=== PATIENT | male | born 1955 | race Caucasian/White ===

== ENCOUNTER → 2016-06-05 | Outpatient (CLI) | payer OTHER ==
[2016-06-05 13:39] LABS: ALT/SGPT 58 U/L (12-78); AST/SGOT 29 U/L (15-37); BLOOD UREA NITROGEN 16 mg/dl (7-18); BUN/CREATININE RATIO 14.7 (10-20); CALCIUM 8.7 mg/dl (8.5-10.1); CARBON DIOXIDE 25 mmol/L (21-32); CHLORIDE 110 mmol/L (98-107); GLUCOSE 103 mg/dl (70-99); POTASSIUM 4.5 mmol/L (3.5-5.1); SODIUM 142 mmol/L (136-145)
[2016-06-05 13:45] LABS: ALB/GLOB RATIO 1.2 (0.9-2); ALKALINE PHOSPHATASE 69 U/L (45-117); CHOLESTEROL 123 mg/dl (0-200); CHOLESTEROL/HDL RATIO 3.6; HDL CHOLESTEROL 34 mg/dl; LDL CHOLESTEROL CALCULATED 59 mg/dl; PROSTATE SPECIFIC ANTIGEN 0.836 ng/ml (0.000-4.000); TRIGLYCERIDES 152 mg/dl (0-150); VERY LOW DENSITY LIPOPROT CALC 30 mg/dl
== END | disposition home or self-care (01) ==
LOC: C.LABPBG 07:28
PROVIDERS: ATTEND Internal Medicine
DX: Z12.5 Encounter for screening for malignant neoplasm of prostate (principal)

== ENCOUNTER → 2017-07-20 | Outpatient (CLI) | payer OTHER ==
[2017-07-20 13:22] LABS: ALT/SGPT 49 U/L (12-78); AST/SGOT 37 U/L (15-37); BLOOD UREA NITROGEN 18 mg/dl (7-18); CALCIUM 8.7 mg/dl (8.5-10.1); CARBON DIOXIDE 25 mmol/L (21-32); CHOLESTEROL 112 mg/dl (0-200); CREATININE 1.04 mg/dl (0.60-1.40); GLUCOSE 103 mg/dl (70-99); POTASSIUM 3.9 mmol/L (3.5-5.1); SODIUM 138 mmol/L (136-145)
[2017-07-20 13:31] LABS: ALKALINE PHOSPHATASE 95 U/L (45-117); LDL CHOLESTEROL CALCULATED 36 mg/dl; TOTAL PROTEIN 7.3 gm/dl (6.4-8.2)
== END | disposition home or self-care (01) ==
LOC: C.LABPBG 07:27
PROVIDERS: ATTEND Internal Medicine
DX: I10 Essential (primary) hypertension (principal); G47.30 Sleep apnea, unspecified; E55.9 Vitamin D deficiency, unspecified; E78.5 Hyperlipidemia, unspecified; E78.1 Pure hyperglyceridemia

== ENCOUNTER 2017-08-08 11:07 | Emergency (ER) | payer OTHER ==
[~2017-08-08] VITALS: Ht 172.7 cm; Wt 109.0 kg
[2017-08-08 11:13] VITALS: TEMP 36.7; Ht 172.7 cm; Wt 109.0 kg
[2017-08-08 11:32] VITALS: O2SAT 96
[2017-08-08] MEDS ORDERED: ONDANSETRON INJ 2 MG/ML 2 ML VIAL IV STA (11:46)
[2017-08-08] MEDS ORDERED: SODIUM CHLORIDE 0.9% 1000ML 1,000 ML IV STA (11:46)
[2017-08-08] MEDS ORDERED: GI COCKTAIL PO STA (11:46)
[2017-08-08] MEDS ORDERED: OMEG10007 PO (11:51)
[2017-08-08] MEDS ORDERED: ATOR-22 PO (11:51)
[2017-08-08] MEDS ORDERED: MULT-506 PO (11:51)
[2017-08-08] MEDS ORDERED: ASPI81TA28 PO (11:51)
[2017-08-08] MEDS ORDERED: CHOL100010 PO (11:51)
[2017-08-08] MEDS ORDERED: CALC-214 PO (11:51)
[2017-08-08] MEDS ORDERED: ASCO1CAP3 PO (11:51)
[2017-08-08] MEDS ORDERED: LISI-725 PO (11:51)
[2017-08-08] MEDS ORDERED: ATEN-173 PO (11:51)
[2017-08-08] MEDS ORDERED: CHOL1CAP57 PO (11:51)
--- NOTE | 2017-08-08 11:55 | EMERGENCY ROOM VISIT NOTE ---
History Report prepared by Diana: Tolu De Leon Under the Supervision of: Dr. Brian Sargent M.D. First contact with patient: 11:43 Chief Complaint: CHEST PAIN Stated Complaint: SWEATING,SOB,CHEST AND SHOULDER PAIN,NAUSEA Nursing Triage Summary: patient c/o "dull pain in chest for several days, was working on the carpet this morning and get dizzy, sweaty" History of Present Illness The patient is a 62 year old male who presents to the Emergency Room with complaints of intermittent, dull, chest pain beginning a few weeks ago. The patient states he has had this before. He reports he told his PCP on the 4th and was told it was his diet. He reports it will go away completely, and then they would come back. The patient notes they come on randomly, and exertion does not induce it every time. He states he was moving furniture today when his symptoms developed. The patient reports he sat down in the chair and became pale and nauseous. He notes he is currently experiencing 2/10 abdominal burning. The patient states he has been eating a large amount of TUMs recently. He reports his father at 44 of a heart attack, smoked, and did not go to the doctors. The patient notes a history of high blood pressure and is on a statin for cholesterol. He states he drinks alcohol 3-4 times a week. The patient reports he has a history of smoking, and he quit smoking 30 years ago. He denies drug use, black stool, and bloody stool. Source of History: patient Onset: few weeks ago Position: chest Quality: dull Timing: intermittent Associated Symptoms: + nausea Note: Associated symptoms: pale, abdominal burning Denies: black stool, bloody stool Review of Systems See HPI for pertinent positives and negatives. A total of ten systems were reviewed and were otherwise negative. Past Medical & Surgical Medical Problems: (1) HTN (hypertension) Family History Heart disease Hypertension Social History Smoking Status: Former Smoker Smokeless Tobacco Use: No Alcohol Use: none Drug Use: none Marital Status: Housing Status: lives with significant other Occupation Status: employed Current/Historical Medications Scheduled Ascorbic Acid (Vitamin C), 500 MG PO DAILY Aspirin (Aspirin Ec), 81 MG PO DAILY Atenolol (Tenormin), 25 MG PO DAILY Atorvastatin (Lipitor), 20 MG PO DAILY Calcium W/ Magnesium (Calcium & Magnesium), 1 TAB PO DAILY Cholecalciferol (Vitamin D), 1,000 UNITS PO DAILY Cholecalciferol (Vitamin D3), 1,000 UNITS PO DAILY Fish Oil ([place]-3), 1 CAP PO DAILY Lisinopril (Zestril), 20 MG PO DAILY Multivitamin (Multivitamin), 1 TAB PO DAILY Scheduled PRN Famotidine (Pepcid), 20 MG PO BID PRN for GI Upset Allergies Coded Allergies: No Known Allergies (Unverified , 08/08/17) Physical Exam Vital Signs Date Time Temp Pulse Resp B/P (MAP) Pulse Ox O2 Delivery O2 Flow Rate FiO2 08/08/17 14:59 58 16 138/84 95 08/08/17 14:21 60 16 125/78 97 Room Air 08/08/17 12:55 60 16 134/83 96 Room Air 08/08/17 12:08 73 08/08/17 11:32 96 Room Air 08/08/17 11:13 36.7 69 20 163/88 96 Room Air Physical Exam GENERAL: Awake, alert, fatigued-appearing, in no distress HENT: Normocephalic, atraumatic. Oropharynx unremarkable except dry mucous membranes. EYES: Normal conjunctiva. Sclera non-icteric. NECK: Supple. No nuchal rigidity. FROM. No JVD. RESPIRATORY: Clear to auscultation. CARDIAC: Regular rate, normal rhythm. Extremities warm and well perfused. Pulses equal. ABDOMEN: Soft, non-distended. Mild epigastric discomfort with no discrete tenderness to palpation. No rebound or guarding. No masses. RECTAL: Deferred. MUSCULOSKELETAL: Chest examination reveals no tenderness. The back is symmetrical on inspection without obvious abnormality. There is no CVA tenderness to palpation. No joint edema. LOWER EXTREMITIES: Calves are equal size bilaterally and non-tender. No edema. No discoloration. NEURO: Normal sensorium. No sensory or motor deficits noted. SKIN: No rash or jaundice noted. Medical Decision & Procedures ER Provider Diagnostic Interpretation: X-ray: Per my interpretation, radiologist review. CHEST ONE VIEW PORTABLE HISTORY: Atypical CHEST PAIN COMPARISON: None. FINDINGS: Small left perihilar nodular density may be due to a normal vessel or calcified granuloma. The lungs are otherwise clear. The heart is top normal in size. No pleural effusions. No pneumothorax. No evidence for pulmonary edema. IMPRESSION: No acute process. Electronically signed by: Edis Ambriz M.D. 08/08/2017 12:32 PM Dictated Date/Time: 08/08/2017 12:30 PM Laboratory Results 08/08/17 11:30 Red Blood Count 5.33, Mean Corpuscular Volume 82.4, Mean Corpuscular Hemoglobin 29.6, Mean Corpuscular Hemoglobin Concent 36.0, Mean Platelet Volume 10.0, Neutrophils (%) (Auto) 63.9, Lymphocytes (%) (Auto) 26.1, Monocytes (%) (Auto) 5.7, Eosinophils (%) (Auto) 2.8, Basophils (%) (Auto) 1.1, Neutrophils # (Auto) 5.23, Lymphocytes # (Auto) 2.14, Monocytes # (Auto) 0.47, Eosinophils # (Auto) 0.23, Basophils # (Auto) 0.09 08/08/17 11:30 Test 08/08/17 11:30 08/08/17 12:05 08/08/17 13:37 White Blood Count 8.19 K/uL (4.8-10.8) Red Blood Count 5.33 M/uL (4.7-6.1) Hemoglobin 15.8 g/dL (14.0-18.0) Hematocrit 43.9 % (42-52) Mean Corpuscular Volume 82.4 fL (80-100) Mean Corpuscular Hemoglobin 29.6 pg (25-34) Mean Corpuscular Hemoglobin Concent 36.0 g/dl (32-36) Platelet Count 246 K/uL (130-400) Mean Platelet Volume 10.0 fL (7.4-10.4) Neutrophils (%) (Auto) 63.9 % Lymphocytes (%) (Auto) 26.1 % Monocytes (%) (Auto) 5.7 % Eosinophils (%) (Auto) 2.8 % Basophils (%) (Auto) 1.1 % Neutrophils # (Auto) 5.23 K/uL (1.4-6.5) Lymphocytes # (Auto) 2.14 K/uL (1.2-3.4) Monocytes # (Auto) 0.47 K/uL (0.11-0.59) Eosinophils # (Auto) 0.23 K/uL (0-0.5) Basophils # (Auto) 0.09 K/uL (0-0.2) RDW Standard Deviation 37.6 fL (36.4-46.3) RDW Coefficient of Variation 12.6 % (11.5-14.5) Immature Granulocyte % (Auto) 0.4 % Immature Granulocyte # (Auto) 0.03 K/uL (0.00-0.02) Prothrombin Time 10.0 SECONDS (9.0-12.0) Prothromb Time International Ratio 1.0 (0.9-1.1) Anion Gap 7.0 mmol/L (3-11) Est Creatinine Clear Calc Drug Dose 75.8 ml/min Estimated GFR () 72.8 Estimated GFR (Non- 62.8 BUN/Creatinine Ratio 15.2 (10-20) Calcium Level 9.5 mg/dl (8.5-10.1) Magnesium Level 2.0 mg/dl (1.8-2.4) Total Bilirubin 0.5 mg/dl (0.2-1) Direct Bilirubin 0.1 mg/dl (0-0.2) Aspartate Amino Transf (AST/SGOT) 31 U/L (15-37) Alanine Aminotransferase (ALT/SGPT) 47 U/L (12-78) Alkaline Phosphatase 93 U/L (45-117) Total Protein 7.6 gm/dl (6.4-8.2) Albumin 4.1 gm/dl (3.4-5.0) Lipase 212 U/L (73-393) Ethyl Alcohol mg/dL < 3.0 mg/dl (0-3) Troponin I < 0.015 ng/ml (0-0.045) Laboratory results reviewed by me Medications Administered Medications (Trade) Dose Ordered Sig/Deanna Route Start Time Stop Time Status Last Admin Dose Admin Sodium Chloride 1,000 ml @ 999 mls/hr Q1H1M STAT IV 08/08/17 11:46 08/08/17 12:46 DC 08/08/17 12:12 999 MLS/HR Ondansetron HCl (Zofran Inj) 4 mg NOW STAT IV 08/08/17 11:46 08/08/17 11:55 DC 08/08/17 12:13 4 MG Famotidine (Pepcid Tab) 20 mg NOW ONCE PO 08/08/17 12:00 08/08/17 12:01 DC 08/08/17 12:13 20 MG Al Hydroxide/Mg Hydroxide (Maalox Susp) 30 ml STK-MED ONCE .ROUTE 08/08/17 12:06 08/08/17 12:07 DC 08/08/17 12:13 30 ML Lidocaine HCl (Viscous Lidocaine 2% Soln) 20 ml STK-MED ONCE .ROUTE 08/08/17 12:06 08/08/17 12:07 DC 08/08/17 12:13 20 ML ECG Per My Interpretation Indication: chest pain Rate (beats per minute): 68 Rhythm: normal sinus Findings: no acute ischemic change, other (Normal axis) ED Course 1146: The patient was evaluated in room B02. A complete history and physical exam was performed. 1322: I reevaluated the patient. He is feeling better. I updated him of current exam and test findings. 1444: I reevaluated the patient. Discussed results and discharge instructions: he verbalized understanding and agreement. The patient is ready for discharge. Medical Decision I reviewed the patient's past medical history, medications, and the nursing notes as described above. Differential diagnosis: Etiologies such as cardiac ischemia, aortic dissection, pulmonary embolism, pneumonia, pneumothorax, musculoskeletal, infections, pericarditis, myocarditis , esophageal rupture, gastrointestinal, as well as others were entertained. The patient is a 62-year-old gentleman who presents emergency department with intermittent chest and abdominal pain that waxes and wanes over the past several weeks with associated nausea and shortness of breath per hpi. On arrival the patient is no acute distress, afebrile stable vital signs. On exam the patient is mild upper abdominal discomfort with no discrete tenderness. EKG is unremarkable without evidence of ischemia. Troponin 4 hours after onset of symptoms negative. Labs otherwise unremarkable including WBC within normal limits. Chest x-ray negative. Patient feeling improved after IV fluid hydration, Pepcid, GI cocktail. Delta 2 hour troponin sent for additional rule out and again negative. Heart score 3, low risk, ACS unlikely. No pleuritic sx thus PE not likely. Not positional, pericarditis not likely. No tearing pain and equal pulses, dissection not likely. Otherwise, given the patient's improvement with GI medications symptoms most likely related to gastritis, reflux. Plan for PCP follow-up for further evaluation and possible nonemergent outpatient stress testing although patient reports normal exercise stress test in 2016. Findings and plan for follow-up reviewed with patient. Patient agreeable and d/c'd per discharge instructions. Medication Reconcilliation Current Medication List: was personally reviewed by me Blood Pressure Screening Patient's blood pressure: Elevated blood pressure Blood pressure disposition: Elevated BP felt to be situational Impression Primary Impression: Substernal precordial chest pain Additional Impression: Gastritis Scribe Attestation The scribe's documentation has been prepared under my direction and personally reviewed by me in its entirety. I confirm that the note above accurately reflects all work, treatment, procedures, and medical decision making performed by me. Departure Information Dispostion Home / Self-Care Prescriptions Famotidine (PEPCID) 20 Mg Tab 20 MG PO BID Y for GI Upset for 10 Days, #20 TAB Prov: Brian Sargent M.D. 08/08/17 Referrals Fawad Ca M.D. (PCP) Forms Call Back Authorization, HOME CARE DOCUMENTATION FORM, IMPORTANT VISIT INFORMATION Patient Instructions ED Chest Pain Atypical Unkn Cause, ED Gastritis, My [facility] Additional Instructions Please follow up with your primary care physician in the next 1-3 days for re- evaluation and possible nonemergent outpatient stress test. Your symptoms are possibly related to reflux/gastritis. Otherwise, your exam, EKG, chest xray, and lab results did not show signs of an emergent condition at this time. Pepcid and Tums as needed for GI upset/acid reduction. Drink plenty of fluids to ensure hydration. Return to the emergency department for worsening symptoms as described in the accompanying instructions. Problem Qualifiers
[2017-08-08] MEDS ORDERED: FAMOTIDINE 20 MG TAB PO ONE (12:00)
[2017-08-08 12:02] LABS: BASO % 1.1 %; BASO ABS # 0.09 K/uL (0-0.2); EOS % 2.8 %; EOS ABS # 0.23 K/uL (0-0.5); HEMATOCRIT 43.9 % (42-52); HEMOGLOBIN 15.8 g/dL (14.0-18.0); IG# 0.03 K/uL (0.00-0.02); LYMPH % 26.1 %; LYMPH ABS # 2.14 K/uL (1.2-3.4); MEAN CELL VOLUME 82.4 fL (80-100); MEAN CORPUSCULAR HEMOGLOBIN 29.6 pg (25-34); MONO % 5.7 %; MONO ABS # 0.47 K/uL (0.11-0.59); NEUT % 63.9 %; NEUT ABS # 5.23 K/uL (1.4-6.5); PLATELET COUNT 246 K/uL (130-400); RED CELL DISTRIBUTION WIDTH CV 12.6 % (11.5-14.5); RED CELL DISTRIBUTION WIDTH SD 37.6 fL (36.4-46.3); WHITE BLOOD COUNT 8.19 K/uL (4.8-10.8)
[2017-08-08] MEDS ORDERED: ALUMINUM/MAGNESIUM SUSP 30 ML UDC ONE (12:06)
[2017-08-08] MEDS ORDERED: LIDOCAINE HCL 2% VISC SOLN 20 ML UDC ONE (12:06)
[2017-08-08 12:14] LABS: ALBUMIN 4.1 gm/dl (3.4-5.0); ALKALINE PHOSPHATASE 93 U/L (45-117); ALT/SGPT 47 U/L (12-78); AST/SGOT 31 U/L (15-37); BLOOD UREA NITROGEN 19 mg/dl (7-18); CALCIUM 9.5 mg/dl (8.5-10.1); CARBON DIOXIDE 28 mmol/L (21-32); CREATININE 1.24 mg/dl (0.60-1.40); GLUCOSE 96 mg/dl (70-99); LIPASE 212 U/L (73-393); POTASSIUM 4.3 mmol/L (3.5-5.1); SODIUM 140 mmol/L (136-145); TOTAL PROTEIN 7.6 gm/dl (6.4-8.2)
--- NOTE | 2017-08-08 12:33 | DIAGNOSTIC IMAGING REPORT ---
CHEST ONE VIEW PORTABLE HISTORY: Atypical CHEST PAIN COMPARISON: None. FINDINGS: Small left perihilar nodular density may be due to a normal vessel or calcified granuloma. The lungs are otherwise clear. The heart is top normal in size. No pleural effusions. No pneumothorax. No evidence for pulmonary edema. IMPRESSION: No acute process. Electronically signed by: Edis Ambriz M.D. 08/08/2017 12:32 PM Dictated Date/Time: 08/08/2017 12:30 PM
[2017-08-08] MEDS ORDERED: FAMO20TA9 PO (14:41)
[2017-08-08 14:59] VITALS: BP 138/84; PULSE 58; O2SAT 95
== END 2017-08-08 15:00 | disposition home or self-care (01) ==
LOC: C.EDB 11:09
DX: R07.2 Precordial pain (principal); K29.70 Gastritis, unspecified, without bleeding; I10 Essential (primary) hypertension; Z87.891 Personal history of nicotine dependence; Z82.49 Family history of ischemic heart disease and other diseases of the circulatory system; Z81.2 Family history of tobacco abuse and dependence; Z79.82 Long term (current) use of aspirin; Z79.899 Other long term (current) drug therapy

== ENCOUNTER 2017-10-19 07:05 | Emergency (ER) | payer OTHER ==
[~2017-10-19 07:05] MED LIST: ASCO1CAP3 PO; ASPI81TA28 PO; ATEN-173 PO; ATOR-22 PO; CALC-214 PO; CHOL100010 PO; CHOL1CAP57 PO; LISI-725 PO; MULT-506 PO; OMEG10007 PO
[2017-10-19 07:15] VITALS: Ht 177.8 cm
[2017-10-19] MEDS ORDERED: ZNT/150 PO (07:29)
[2017-10-19 07:35] LABS: BASO % 0.9 %; BASO ABS # 0.07 K/uL (0-0.2); EOS % 3.7 %; EOS ABS # 0.29 K/uL (0-0.5); HEMATOCRIT 44.8 % (42-52); HEMOGLOBIN 15.6 g/dL (14.0-18.0); IG# 0.03 K/uL (0.00-0.02); LYMPH ABS # 2.03 K/uL (1.2-3.4); MEAN CELL VOLUME 84.8 fL (80-100); MEAN CORPUSCULAR HEMOGLOBIN 29.5 pg (25-34); MEAN CORPUSCULAR HGB CONC 34.8 g/dl (32-36); MEAN PLATELET VOLUME 10.5 fL (7.4-10.4); MONO % 8.4 %; MONO ABS # 0.66 K/uL (0.11-0.59); NEUT % 60.6 %; NEUT ABS # 4.74 K/uL (1.4-6.5); PLATELET COUNT 224 K/uL (130-400); RED CELL DISTRIBUTION WIDTH CV 12.6 % (11.5-14.5); RED CELL DISTRIBUTION WIDTH SD 38.6 fL (36.4-46.3); WHITE BLOOD COUNT 7.82 K/uL (4.8-10.8)
--- NOTE | 2017-10-19 07:37 | DIAGNOSTIC IMAGING REPORT ---
CHEST ONE VIEW PORTABLE CLINICAL HISTORY: Fever, sepsis COMPARISON STUDY: No previous studies for comparison. FINDINGS: The heart is at the upper limits of normal in size. There is no failure. There is no focal pulmonary consolidation. There are no pleural effusions.[ IMPRESSION: No active disease in the chest. Electronically signed by: Orlando Mcdonnell M.D. 10/19/2017 7:35 AM Dictated Date/Time: 10/19/2017 7:35 AM
[2017-10-19 07:45] LABS: PTT PATIENT 24.5 SECONDS (21.0-31.0)
[2017-10-19 07:57] LABS: ALBUMIN 3.9 gm/dl (3.4-5.0); ALKALINE PHOSPHATASE 92 U/L (45-117); ALT/SGPT 56 U/L (12-78); AST/SGOT 41 U/L (15-37); BLOOD UREA NITROGEN 19 mg/dl (7-18); CALCIUM 8.7 mg/dl (8.5-10.1); CARBON DIOXIDE 26 mmol/L (21-32); CKMB 13.6 ng/ml (0.5-3.6); CREATININE 1.08 mg/dl (0.60-1.40); GLUCOSE 120 mg/dl (70-99); LIPASE 165 U/L (73-393); POTASSIUM 3.9 mmol/L (3.5-5.1); SODIUM 138 mmol/L (136-145); TOTAL PROTEIN 7.4 gm/dl (6.4-8.2)
--- NOTE | 2017-10-19 08:59 | DIAGNOSTIC IMAGING REPORT ---
HEAD WITHOUT CONTRAST (CT) CLINICAL HISTORY: 62 years-old Male with paresthesias all extremities. Acute paresthesia involving all of the extremities TECHNIQUE: Multiple axial CT images of the head were obtained without contrast. A dose lowering technique was utilized adhering to the principles of ALARA. CT DOSE: 537.48 mGy.cm COMPARISON: None. FINDINGS: No acute intracranial hemorrhage, midline shift, intracranial mass, hydrocephalus, territorial ischemia or abnormal extra-axial collection. Cerebellar tonsils are noted extending to at least the level of the foramen magnum. The calvarium is intact. Mastoid air cells and middle ear cavities are clear clear. Mild mucosal thickening of the inferior frontal sinuses, and bilateral ethmoid air cells. Minimal polypoid mucosal thickening about the left maxillary sinus. Soft tissues and orbits are unremarkable. Prior bilateral cataract repair. IMPRESSION: No acute intracranial abnormality. The above report was generated using voice recognition software. It may contain grammatical, syntax or spelling errors. Electronically signed by: Joe Portillo M.D. 10/19/2017 8:57 AM Dictated Date/Time: 10/19/2017 8:55 AM
--- NOTE | 2017-10-19 09:06 | EMERGENCY ROOM VISIT NOTE ---
History Report prepared by Diana: Ayo Doherty Under the Supervision of: Dr. José Miguel Howard D.O. First contact with patient: 07:11 Chief Complaint: CARDIAC ASSESSMENT Stated Complaint: BP GUSTABO,FINGERS ZACHARIAH,CHEST PAIN History of Present Illness The patient is a 62 year old male who presents to the Emergency Room with complaints of intermittent chest discomfort that he has been experiencing for the past week. The patient describes his chest discomfort as a "pressure." His most current episode of chest pressure has been constant for the past couple of hours, and he is experiencing it currently. The patient also complains of "tingling" sensations over his arms, hands, and feet for about the past week as well. The patient's at bedside notes that he has been experiencing intermittent dizzy spells. The patient's father of a myocardial infarction at 44 years of age. Source of History: patient Onset: Past week Position: chest Quality: pressure Timing: intermittent Associated Symptoms: + headache (Dizzy), + numbness ("tingling" in arms, hands, and feet) Review of Systems See HPI for pertinent positives & negatives. A total of 10 systems reviewed and were otherwise negative. Past Medical & Surgical Medical Problems: (1) HTN (hypertension) Family History Heart disease Hypertension Social History Smoking Status: Former Smoker Alcohol Use: none Drug Use: none Marital Status: Housing Status: lives with significant other Occupation Status: employed Current/Historical Medications Scheduled Ascorbic Acid (Vitamin C), 500 MG PO DAILY Aspirin (Aspirin Ec), 81 MG PO DAILY Atenolol (Tenormin), 25 MG PO DAILY Atorvastatin (Lipitor), 20 MG PO DAILY Calcium W/ Magnesium (Calcium & Magnesium), 1 TAB PO DAILY Cholecalciferol (Vitamin D), 2,000 UNITS PO DAILY Fish Oil ([place]-3), 1 CAP PO DAILY Lisinopril (Zestril), 20 MG PO DAILY Multivitamin (Multivitamin), 1 TAB PO DAILY Ranitidine Hcl (Zantac), 150 MG PO BID Allergies Coded Allergies: No Known Allergies (Unverified , 10/19/17) Physical Exam Vital Signs Date Time Temp Pulse Resp B/P (MAP) Pulse Ox O2 Delivery O2 Flow Rate FiO2 10/19/17 09:35 58 18 126/69 96 10/19/17 08:53 63 19 131/82 96 Room Air 10/19/17 07:17 97 Room Air 10/19/17 07:16 69 10/19/17 07:15 71 20 149/93 97 Room Air Physical Exam CONSTITUTIONAL/VITAL SIGNS: Reviewed / noted above. GENERAL: Non-toxic in appearance. INTEGUMENTARY: Warm, dry, and [place]. HEAD: Normocephalic. EYES: without scleral icterus or trauma. ENT/OROPHARYNX: clear and moist. LYMPHADENOPATHY/NECK: Is supple without lymphadenopathy or meningismus. RESPIRATORY: Lungs clear and equal. CARDIOVASCULAR: Regular rate and rhythm. GI/ABDOMEN: Soft and nontender. No organomegaly or pulsatile mass. No rebound or guarding. Normal bowel sounds. EXTREMITIES: Warm and well perfused. BACK: No CVA tenderness. NEUROLOGICAL: Intact without focal deficits. PSYCHIATRIC: normal affect. MUSCULOSKELETAL: Normally developed with good muscle tone. Medical Decision & Procedures ER Provider Diagnostic Interpretation: Radiology results as stated below per my review and radiologist interpretation: HEAD WITHOUT CONTRAST (CT) CLINICAL HISTORY: 62 years-old Male with paresthesias all extremities. Acute paresthesia involving all of the extremities TECHNIQUE: Multiple axial CT images of the head were obtained without contrast. A dose lowering technique was utilized adhering to the principles of ALARA. CT DOSE: 537.48 mGy.cm COMPARISON: None. FINDINGS: No acute intracranial hemorrhage, midline shift, intracranial mass, hydrocephalus, territorial ischemia or abnormal extra-axial collection. Cerebellar tonsils are noted extending to at least the level of the foramen magnum. The calvarium is intact. Mastoid air cells and middle ear cavities are clear clear. Mild mucosal thickening of the inferior frontal sinuses, and bilateral ethmoid air cells. Minimal polypoid mucosal thickening about the left maxillary sinus. Soft tissues and orbits are unremarkable. Prior bilateral cataract repair. IMPRESSION: No acute intracranial abnormality. The above report was generated using voice recognition software. It may contain grammatical, syntax or spelling errors. Electronically signed by: Joe Portillo M.D. 10/19/2017 8:57 AM Dictated Date/Time: 10/19/2017 8:55 AM CHEST ONE VIEW PORTABLE CLINICAL HISTORY: Fever, sepsis COMPARISON STUDY: No previous studies for comparison. FINDINGS: The heart is at the upper limits of normal in size. There is no failure. There is no focal pulmonary consolidation. There are no pleural effusions.[ IMPRESSION: No active disease in the chest. Electronically signed by: Orlando Mcdonnell M.D. 10/19/2017 7:35 AM Dictated Date/Time: 10/19/2017 7:35 AM Laboratory Results 10/19/17 07:23 Red Blood Count 5.28, Mean Corpuscular Volume 84.8, Mean Corpuscular Hemoglobin 29.5, Mean Corpuscular Hemoglobin Concent 34.8, Mean Platelet Volume 10.5, Neutrophils (%) (Auto) 60.6, Lymphocytes (%) (Auto) 26.0, Monocytes (%) (Auto) 8.4, Eosinophils (%) (Auto) 3.7, Basophils (%) (Auto) 0.9, Neutrophils # (Auto) 4.74, Lymphocytes # (Auto) 2.03, Monocytes # (Auto) 0.66, Eosinophils # (Auto) 0.29, Basophils # (Auto) 0.07 10/19/17 07:23 Test 10/19/17 07:23 White Blood Count 7.82 K/uL (4.8-10.8) Red Blood Count 5.28 M/uL (4.7-6.1) Hemoglobin 15.6 g/dL (14.0-18.0) Hematocrit 44.8 % (42-52) Mean Corpuscular Volume 84.8 fL (80-100) Mean Corpuscular Hemoglobin 29.5 pg (25-34) Mean Corpuscular Hemoglobin Concent 34.8 g/dl (32-36) Platelet Count 224 K/uL (130-400) Mean Platelet Volume 10.5 fL (7.4-10.4) Neutrophils (%) (Auto) 60.6 % Lymphocytes (%) (Auto) 26.0 % Monocytes (%) (Auto) 8.4 % Eosinophils (%) (Auto) 3.7 % Basophils (%) (Auto) 0.9 % Neutrophils # (Auto) 4.74 K/uL (1.4-6.5) Lymphocytes # (Auto) 2.03 K/uL (1.2-3.4) Monocytes # (Auto) 0.66 K/uL (0.11-0.59) Eosinophils # (Auto) 0.29 K/uL (0-0.5) Basophils # (Auto) 0.07 K/uL (0-0.2) RDW Standard Deviation 38.6 fL (36.4-46.3) RDW Coefficient of Variation 12.6 % (11.5-14.5) Immature Granulocyte % (Auto) 0.4 % Immature Granulocyte # (Auto) 0.03 K/uL (0.00-0.02) Prothrombin Time 10.2 SECONDS (9.0-12.0) Prothromb Time International Ratio 1.0 (0.9-1.1) Activated Partial Thromboplast Time 24.5 SECONDS (21.0-31.0) Partial Thromboplastin Ratio 0.9 Anion Gap 8.0 mmol/L (3-11) Estimated GFR () 86.0 Estimated GFR (Non- 74.2 BUN/Creatinine Ratio 17.4 (10-20) Calcium Level 8.7 mg/dl (8.5-10.1) Total Bilirubin 0.7 mg/dl (0.2-1) Direct Bilirubin 0.2 mg/dl (0-0.2) Aspartate Amino Transf (AST/SGOT) 41 U/L (15-37) Alanine Aminotransferase (ALT/SGPT) 56 U/L (12-78) Alkaline Phosphatase 92 U/L (45-117) Total Creatine Kinase 557 U/L (39-308) Creatine Kinase MB 13.6 ng/ml (0.5-3.6) Creatine Kinase MB Ratio 2.4 (0-3.0) Troponin I < 0.015 ng/ml (0-0.045) Total Protein 7.4 gm/dl (6.4-8.2) Albumin 3.9 gm/dl (3.4-5.0) Lipase 165 U/L (73-393) Laboratory results as stated above per my review. ECG Per My Interpretation Indication: chest pain Rate (beats per minute): 69 Rhythm: normal sinus Findings: no acute ischemic change, no ectopy, other (No TALYA/STD, no PVCs) ED Course 0717: Previous medical records were reviewed. The patient was evaluated in room A9B. A complete history and physical examination was performed. 0910:: On reevaluation, the patient is resting in bed. I discussed the results and findings with the patient. He verbalized agreement of the treatment plan. The patient was discharged home. Medical Decision the differential was considered includes acute myocardial infarction, acute coronary syndrome, myocarditis, pericarditis, pericardial effusions /tamponade, esophageal perforation, thoracic aortic dissection, pulmonary embolism, pneumonia, pneumothorax, pancreatitis, shingles, acute cholecystitis, perforated abdominal viscus. This is a 62-year-old male who presents to the ED with a chief complaint of some tingling in his arms, hands and feet over the past week or 2. He also reports some chest pressure in the middle of his chest over the past couple of weeks as well. It is been present for at least a couple of hours now. He states that he has been up since midnight and was having trouble sleeping. He denies any focal deficits. Denies any additional symptoms. His vital signs were initially hypertensive but is currently normal. The patient's neuro exam was normal. EKG shows a normal sinus rhythm at a rate of 69. CBC is normal, BUN is 19, troponin was negative, CT scan of the brain was negative for acute disease and a chest x-ray was negative for acute disease. The patient was told the results. He is felt to be stable for discharge and outpatient follow-up. Medication Reconcilliation Current Medication List: was personally reviewed by me Blood Pressure Screening Patient's blood pressure: Elevated blood pressure Blood pressure disposition: Elevated BP felt to be situational Impression Primary Impression: Paresthesia Additional Impression: Chest pressure Scribe Attestation The scribe's documentation has been prepared under my direction and personally reviewed by me in its entirety. I confirm that the note above accurately reflects all work, treatment, procedures, and medical decision making performed by me. Departure Information Dispostion Home / Self-Care Referrals Fawad Ca M.D. (PCP) Patient Instructions My [facility] Additional Instructions CT scan of the brain was normal, chest x-ray was normal, blood work was unremarkable. EKG did not show any abnormality. The exact cause of your symptoms today were not discovered. Follow-up with your family doctor this week for recheck and further evaluation. Return for worsening or new symptoms. Problem Qualifiers
[2017-10-19 09:35] VITALS: BP 126/69; PULSE 58; O2SAT 96
== END 2017-10-19 09:35 | disposition home or self-care (01) ==
LOC: C.EDB 07:06 → C.EDA 09:35
DX: R20.2 Paresthesia of skin (principal); R07.89 Other chest pain; Z82.41 Family history of sudden cardiac death; I10 Essential (primary) hypertension; Z79.82 Long term (current) use of aspirin; Z79.899 Other long term (current) drug therapy

== ENCOUNTER → 2017-10-27 | Outpatient (CLI) | payer OTHER ==
[~2017-10-27] MED LIST changes: -CHOL1CAP57 PO; +ZNT/150 PO
[2017-10-27 13:43] LABS: ALBUMIN 3.9 gm/dl (3.4-5.0); ALKALINE PHOSPHATASE 89 U/L (45-117); ALT/SGPT 51 U/L (12-78); AST/SGOT 30 U/L (15-37); BLOOD UREA NITROGEN 24 mg/dl (7-18); CALCIUM 8.8 mg/dl (8.5-10.1); CARBON DIOXIDE 20 mmol/L (21-32); CREATININE 1.01 mg/dl (0.60-1.40); GLUCOSE 108 mg/dl (70-99); POTASSIUM 3.9 mmol/L (3.5-5.1); SODIUM 136 mmol/L (136-145); TOTAL PROTEIN 7.5 gm/dl (6.4-8.2)
== END | disposition home or self-care (01) ==
LOC: C.LABPBG 07:28
PROVIDERS: ATTEND Nurse Practitioner Adult Health
DX: R74.8 Abnormal levels of other serum enzymes (principal); E78.5 Hyperlipidemia, unspecified

== ENCOUNTER 2019-10-31 05:13 | Observation (INO) ==
--- NOTE | 2019-10-27 09:20 | Anesthesiology Consultation ---
Date of Service October 27, 2019 Assessment & Plan (1) Encounter for pre-operative examination: COVID Status: As of 10/24 nurse assessment, patient denies travel to endemic area, known exposure/sick contacts, or symptoms of COVID19. Preoperative COVID19 testing completed on 10/25 at [facility], results pending. Chart Review Chart Review: Acceptable Risk for Surgery and Patient NOT seen in Pre Admission Testing History Surgery Operation Date: 10/31/19 07:00 Proposed Procedures p Laparoscopic Cholecystectomy - Alan Pyle MD, FACS Height/Weight Height: 5 ft 10 in Weight: 104.326 kg Allergies Allergy/AdvReac Type Severity Reaction Status Date / Time No Known Drug Allergies Allergy Verified 10/25/19 13:28 Medications Home Medications Medication Instructions Recorded Confirmed Last Taken aspirin [Ecotrin Low Strength] 81 mg PO QAM 03/12/18 10/25/19 03/30/18 09:00 multivitamin 1 tab PO HS 03/12/18 10/25/19 09/20/18 22:00 cholecalciferol (vitamin D3) 25 1,000 unit PO QAM 09/07/18 10/25/19 09/20/18 22:00 mcg (1,000 unit) capsule omega 6-yhg-kdw-fish oil 1,000 mg 1 cap PO BID cap 03/09/19 10/25/19 Unknown (120 mg-180 mg) capsule atorvastatin 40 mg tablet 40 mg PO QPM #90 tab 08/29/19 10/25/19 Unknown omeprazole 40 mg capsule,delayed 40 mg PO BID #60 cap 09/06/19 10/25/19 Unknown release lisinopril 40 mg tablet 40 mg PO QAM #30 tab 09/21/19 10/25/19 Unknown ascorbic acid (vitamin C) 500 mg 1,000 mg PO HS tab 10/04/19 10/25/19 Unknown tablet vitamin E 400 unit tablet 400 units PO QAM 10/04/19 10/25/19 Unknown hydrochlorothiazide 12.5 mg PO QAM 10/25/19 10/25/19 Unknown metoprolol succinate 25 mg PO HS 10/25/19 10/25/19 Unknown Past Medical History Medical History GERD (gastroesophageal reflux disease) (Chronic) Hearing deficit (Chronic) History of Helicobacter pylori infection resolved. treated in april 2019 Hyperlipidemia (Chronic) Hypertension (Chronic) Sleep apnea (Chronic) cpap Past Family History Family History Grandmother (Maternal) Family history of diabetes mellitus Diabetes Father Cardiac disorder Myocardial infarction Brother Cardiac disorder Mother History of cholecystectomy Other Heart disease Denies family history of Ovarian cancer Prostate cancer Breast cancer Colorectal cancer Past Surgical History Surgical History History of back surgery 05/20/01 lumbar laminectomy (fragmented disc removed at l4-l[address] Paula History of bilateral cataract extraction History of cardiac cath 2005 @ [place] no stents History of cataract surgery 05/04 removal of bilateral cataracts History of colonoscopy w/ polypectomy mar 2019 History of esophagogastroduodenoscopy (EGD) apr 2019 History of lumbar discectomy L5 History of tonsillectomy and adenoidectomy History of tooth extraction wisdom teeth Hx of vasectomy Social History Smoking Status: Former smoker Smoking cigarettes per day: 1 pack Smoking End Date: 32 years ago Hx Alcohol Use: Yes Alcohol type: beer alcohol intake frequency: a few times a week Hx Substance Use: No substance use type: does not use Testing Laboratory Results 10/26/19 WBC: 7.10 H/H: 15/43.1 PLATELETS: 221 SODIUM: 137 POTASSIUM: 4.3 CHLORIDE: 107 CO2: 23 BUN: 26 CREATININE: 1.29 GLUCOSE: 117 Electrocardiogram Date: 10/20/19 Findings: + NSR @ (64bpm) Stress Test Date: 02/02/18 Type: exercise Resting EF: 60% Normal exercise stress echo without evidence of ischemia. LV normal in size and systolic function. Mild concentric LVH.
[2019-10-31] MEDS ORDERED: LR 15ML/HR IV SCH (06:00)
[2019-10-31] MEDS ORDERED: DEXAMETHASONE SOD INJ 4 MG/ML VIAL ONE (06:23)
[2019-10-31] MEDS ORDERED: LIDOCAINE HCL 2% 2 ML VIAL/AMP(20MG/ML) INFIL ONE (06:23)
[2019-10-31] MEDS ORDERED: ROCURONIUM BROMIDE 10 MG/ML 5 ML VIAL IV ONE (06:23)
[2019-10-31] MEDS ORDERED: GLYCOPYRROLATE 0.2 MG/ML VIAL ONE (06:23)
[2019-10-31] MEDS ORDERED: PROPOFOL IV EMULSION 10 MG/ML 20 ML VIAL IV ONE (06:23)
[2019-10-31] MEDS ORDERED: ONDANSETRON INJ 2 MG/ML 2 ML VIAL ONE (06:23)
[2019-10-31] MEDS ORDERED: NEOSTIGMINE METHYLSULFATE 5 MG/5 ML SYR ONE (06:23)
[2019-10-31] MEDS ORDERED: fentaNYL citrate 100 MCG/2 ML VIAL ONE ×2 (06:24→07:12)
[2019-10-31] MEDS ORDERED: MIDAZOLAM HCL 1 MG/ML 2ML VIAL ONE (06:24)
[2019-10-31] MEDS ORDERED: ATROPINE SULFATE 0.1 MG/ML 10ML SYR IV PRN (06:35)
[2019-10-31] MEDS ORDERED: HYDROmorphone INJ 1 MG/ML SYRINGE IV PRN (06:35)
[2019-10-31] MEDS ORDERED: ONDANSETRON INJ 2 MG/ML 2 ML VIAL IV PRN ×2 (06:35→09:22)
[2019-10-31] MEDS ORDERED: fentaNYL citrate 100 MCG/2 ML VIAL IV PRN (06:35)
[2019-10-31] MEDS ORDERED: ePHEDrine sulfate 50 MG/ML AMP IV PRN (06:35)
[2019-10-31] MEDS ORDERED: BUPIVACAINE 0.5 % 5 MG/1 ML MPF 30ML VIAL ONE (06:38)
--- NOTE | 2019-10-31 06:52 | History & Physical Report ---
Date of Service October 31, 2019 Assessment & Plan (1) Biliary colic: Patient is for laparoscopic cholecystectomy [facility] Likely discharge home History of Present Illness Primary Care Provider: KULWANT Gaytan 64-year-old male with a history of abdominal pain felt to be associated with his gallbladder He had an ultrasound showing gallbladder sludge He is for elective cholecystectomy Allergies Allergy/AdvReac Type Severity Reaction Status Date / Time No Known Drug Allergies Allergy Verified 10/31/19 05:43 Home Medications Home Medications Medication Instructions Recorded Confirmed Type aspirin [Ecotrin Low Strength] 81 mg PO QAM 03/12/18 10/31/19 History multivitamin 1 tab PO HS 03/12/18 10/25/19 History cholecalciferol (vitamin D3) 25 1,000 unit PO QAM 09/07/18 10/25/19 History mcg (1,000 unit) capsule omega 2-rqr-fqt-fish oil 1,000 mg 1 cap PO BID cap 03/09/19 10/25/19 History (120 mg-180 mg) capsule atorvastatin 40 mg tablet 40 mg PO QPM #90 tab 08/29/19 10/25/19 Rx omeprazole 40 mg capsule,delayed 40 mg PO BID #60 cap 09/06/19 10/31/19 Rx release lisinopril 40 mg tablet 40 mg PO QAM #30 tab 09/21/19 10/25/19 Rx ascorbic acid (vitamin C) 500 mg 1,000 mg PO HS tab 10/04/19 10/31/19 History tablet vitamin E 400 unit tablet 400 units PO QAM 10/04/19 10/31/19 History hydrochlorothiazide 12.5 mg PO QAM 10/25/19 10/25/19 History metoprolol succinate 25 mg PO HS 10/25/19 10/25/19 History acetaminophen [Tylenol] 650 mg PO Q4 PRN 10/31/19 10/31/19 History Past Med/Surg History Medical History GERD (gastroesophageal reflux disease) (Chronic) Hearing deficit (Chronic) History of Helicobacter pylori infection resolved. treated in april 2019 Hyperlipidemia (Chronic) Hypertension (Chronic) Sleep apnea (Chronic) cpap Surgical History History of back surgery 05/20/01 lumbar laminectomy (fragmented disc removed at l4-l[address] Paula History of bilateral cataract extraction History of cardiac cath 2006 @ [place] no stents History of cataract surgery 05/04 removal of bilateral cataracts History of colonoscopy w/ polypectomy mar 2019 History of esophagogastroduodenoscopy (EGD) apr 2019 History of lumbar discectomy L5 History of tonsillectomy and adenoidectomy History of tooth extraction wisdom teeth Hx of vasectomy Family History Grandmother (Maternal) Family history of diabetes mellitus Diabetes Father Cardiac disorder Myocardial infarction Brother Cardiac disorder Mother History of cholecystectomy Other Heart disease Denies family history of Ovarian cancer Prostate cancer Breast cancer Colorectal cancer Social History Smoking Status: Former smoker Age Started Using Tobacco: 17; Age Quit Using Tobacco: 32; Cigarettes Per Day: 1 pack; Smoking End Date: 32 years ago; Second Hand Exposure: No; Hx Alcohol Use: Yes Alcohol type: beer Alcohol Intake Frequency Comment: 12 drinks per week Hx Substance Use: No Preferred Language: Danish Communication Ability: Effective Visual Impairment: Limited Hearing Ability: Normal Yoke Setter Required: No Beliefs That Will Affect Care: None marital status: Current Living Situation: Spouse Current Living Situation Comment: Lives with current occupational status: employed current occupation: production control Feels Safe at Home: Yes Safety Concerns: Feels Safe At This Time Childhood Exposure to Second-Hand Smoke: Yes Diet Comment: pt states he is on a special diet caffeine: Yes (Coffee x 2 cups per day.) during the past year weight has: decreased > 10 lbs Dental Care, Regularly: Yes Physical Activity Frequency: 3-4 Times per Week Seatbelt Use: always Sunscreen Use: No Review of Systems All systems reviewed & are unremarkable except as noted in HPI & below Physical Exam Constitutional: well developed and well nourished; no acute distress Eyes: + anicteric sclerae Respiratory: normal respiratory effort; no respiratory distress Cardiovascular: Rate/Rhythm: regular rate Gastrointestinal (Abdomen): Percussion/Palpation: abdomen soft Musculoskeletal: Gait: normal gait Skin: no rashes, warm and dry Neurologic: awake Psychiatric: Orientation: alert Results & Data Vital Signs (Past 12 Hours) Vital Signs Temp Pulse Resp BP Pulse Ox 10/31/19 05:58 36.7 C 65 18 132/82 98
[2019-10-31] MEDS: cefUROXime 1,500 MG in DEXTROSE 5% 100 ML IV SCH ×2 (06:58→07:10)
[2019-10-31] MEDS ORDERED: ePHEDrine sulfate 50 MG/ML SYR ONE (07:26)
[2019-10-31] MEDS ORDERED: PHENYLEPHRINE 100MCG/ML 5ML SYR ONE (07:26)
[2019-10-31] MEDS ORDERED: OPTIRAY 300 INJ ONE (07:50)
[2019-10-31] MEDS ORDERED: ACETAMINOPHEN 1,000 MG/100 ML VIAL IV ONE (08:19)
--- NOTE | 2019-10-31 08:19 | Post Operative Brief Note ---
PG Immediate Post Op with CF Date of Surgery October 31, 2019 Pre & Post Diagnosis Operation Date: 10/31/19 07:00 Pre-Op Diagnosis: Biliary Colic Post-Op Diagnosis: Biliary Colic, Umbilical Hernia, chronic cholecystitis with adhesions I identified the patient and participated in the time-out.: Yes Procedure Operation Date: 10/31/19 07:00 Actual Procedures p Laparoscopic Cholecystectomy, Umbilical Hernia Repair(Not Applicable) - Alan Pyle MD, FACS Lysis of adhesions Surgeon Alan Pyle MD, FACS Pot Lining Supervisor Asaf Burgess Estimated Blood Loss 10 Findings Consistent with Post-Op Diagnosis Specimens Specimen Description: Permanent Specimen: A.) gallbladder and contents Drains Pancho-Johnson Drain (15 round)
[2019-10-31] MEDS ORDERED: PROMETHAZINE HCL 25 MG in SODIUM CHLORIDE 0.9% 50 ML IV PRN (09:22)
[2019-10-31] MEDS ORDERED: MoRPHine SULFATE 4 MG/ML 1 ML CARP\\VIAL IV PRN (09:22)
[2019-10-31] MEDS ORDERED: LACTATED RINGER'S 1,000 ML IV SCH (09:22)
[2019-10-31] MEDS ORDERED: HYDROCODONE/ACETAMOPHEN 5/325MG TAB PO PRN ×2 (09:22)
[2019-10-31] MEDS ORDERED: lisinopriL 40 MG TAB PO SCH (09:22)
[2019-10-31] MEDS ORDERED: MoRPHine SULFATE 2 MG/ML CARP IV PRN (09:22)
[2019-10-31] MEDS ORDERED: PROMETHAZINE HCL 12.5 MG in SODIUM CHLORIDE 0.9% 50 ML IV PRN (09:22)
--- NOTE | 2019-10-31 10:37 | Operative Report (OR) ---
DATE OF OPERATION: 10/31/2019 NAME OF OPERATION: Umbilical hernia repair and laparoscopic cholecystectomy with lysis of adhesions. PREOPERATIVE DIAGNOSIS: Biliary colic. POSTOPERATIVE DIAGNOSIS: Same with chronic cholecystitis and umbilical hernia. STAFF SURGEON: Alan Pyle MD FINANCIAL INTERNSHIP: Brittny Burgess PA-C. ANESTHESIA: General. DESCRIPTION OF PROCEDURE: The patient was brought in the operating room and placed on the operating table in supine position. His abdomen was prepped and draped in usual fashion. The patient had an umbilical hernia. Skin and subcutaneous tissue at all incisions were anesthetized using 0.5% plain Marcaine. Incision was made above the umbilicus, carrying dissection down, entering the hernia sac, detaching the umbilical stalk from the fascia, placing a Veress needle producing pneumoperitoneum through the hernia. An 11 mm port placed at this level and then under visualization, three 5 mm ports placed, 1 cephalad and 2 laterally. The patient had significant adhesions to the gallbladder of omentum and surrounding tissue. These were taken down and the gallbladder was aspirated of bile. He had significant inflammation at the javon hepatis consistent with chronic cholecystitis. Cystic duct and cystic artery were identified. The cystic duct was somewhat wide. I did attempt a cholangiogram, but could not pass the catheter into the common bile duct. Cystic duct was clipped and transected and the gallbladder dissected away from the liver bed in usual fashion, placed in an Endobag. After appropriate hemostasis and irrigation, I felt that it would be appropriate to place a 15 round Pancho-Johnson drain because of all the inflammation into the subhepatic space, secured to the skin using 3-0 nylon suture. This was done through the lateral 5 mm port site. Gallbladder was removed through the umbilical site. It was examined. It did appear that the cystic duct was somewhat wide and patulous. The fascia at the umbilicus closed using interrupted #1 Ethibond suture, which was to repair the hernia. The umbilical stalk was reattached to the fascia using 2-0 chromic suture and then the skin reapproximated at the umbilicus using Dermabond. The other sites closed using subcuticular 4-0 Monocryl with Steri-Strips. The patient was transferred to recovery room in stable condition. My assistant head cashier helped with prepping, draping, removal of the gallbladder and closure of the wounds. I attest to the content of the Intraoperative Record and any orders documented therein. Any exception s are noted below.
[2019-10-31] MEDS: DOCUSATE SODIUM/SENNA 50/8.6MG TAB PO SCH ×2 (10:39→21:50)
[2019-10-31] MEDS: hydroCHLOROthiazide 25 MG TAB PO SCH (10:39)
--- NOTE | 2019-10-31 10:56 | Hospitalist Consultation ---
Date of Consultation October 31, 2019 Assessment & Plan (1) S/P laparoscopic cholecystectomy: * S/p lap lyndsay with Dr. Pyle on 10/30 for chronic cholecystitis. EBL 10cc. Pre-op h/h * PT/OT/pain management/DVT prophylaxis per primary service * CBC in AM (2) Hypertension: * Follows with [facility] locally. Had antihypertensives increased recently. Cath in 2005, no stents. Hx atypical chest pain syndrome (resolved) * Currently well controlled -- BP 138/76 * Continue home HCTZ 12.5mg, metoprolol 25mg. * Continue lisinopril 40mg unless BP drops lower post-operatively * Continue to monitor (3) Dyslipidemia: * Chronic. Continue home atorvastatin 40mg at night (4) GERD (gastroesophageal reflux disease): * Chronic. Takes omeprazole BID outpatient --> will utilize protonix while inpatient (5) Sleep apnea in adult: * Utilizes CPAP at night with nasal pillows. Did not bring with as he did not anticipate staying overnight. in room but they live 45 minutes away. Unsure of home settings * Ordered CPAP for tonight (6) Vitamin D deficiency: * Chronic. Continue home vitamin D supplementation (7) Aortic valve insufficiency: * follows with [facility] -- reported trace AI. Although, patient did note some increased lightheadedness with increased BP control --> would have follow up with them if this persists after pt on increased anti-htn agents. Pt reports he was told this was his body adjusting to decreased BPs/increased medication (8) DVT prophylaxis: * Per primary service * SCDs Thank you for allowing medicine service to participate in the care of Mr. Miner. Medicine will follow along. Supervising Physician Co-Signing Physician Notes PA Supervision Note: I personally saw and examined the patient. I verified all avendaño points and agree with MILA Martinez with the following exceptions and/or additions: Patient feeling well postoperatively. He has eaten 2 full meals. Denies chest pains or shortness of breath. Has minimal abdominal pain. He is making urine. History and ROS reviewed Vitals reviewed Gen: AAOx3, NAD HEENT: Anicteric sclerae, EOMI CV: RRR no mgr nl S1S2 Pulm: CTAB no wcr Abd: +BS soft NT ND no masses or hernias, incisions clean dry and intact Ext: No edema, 2+ DP pulses Skin: No rashes, warm/dry Neuro: Full strength throughout 64-year-old male here status post laparoscopy for cholecystectomy Doing very well Plan outlined as above Expect discharged home likely tomorrow Hospitalist service will sign off at this time-please feel free to reconsult if new or acute issues arise. History of Present Illness Reason for Consultation: Medical Management Requesting Physician: Dr Pyle Attending Physician: Alan Pyle MD, FACS History of Present Illness 64 year old male with PMHx significant for HTN, HLD, BRADLEY, GERD presented for elective lap cholecystectomy with Dr. Pyle on 10/30. Patient states he originally was hoping to go home following the procedure but has to wait overnight as he had to have a drain place. Patient states he tolerated procedure well. Currently up in bed having breakfast. Pain tolerable with pain medications. States he does have sleep apnea and uses nasal pillows at night (unsure of settings) but did not bring his machine with him as he did not anticipate staying overnight and that he lives approximately 45 minutes away. Patient hopeful for discharge tomorrow and follow up with office for drain removal. Allergies Allergy/AdvReac Type Severity Reaction Status Date / Time No Known Drug Allergies Allergy Verified 10/31/19 05:43 Home Medications Home Medications Medication Instructions Recorded Confirmed Type aspirin [Ecotrin Low Strength] 81 mg PO QAM 03/12/18 10/31/19 History multivitamin 1 tab PO HS 03/12/18 10/25/19 History cholecalciferol (vitamin D3) 25 1,000 unit PO QAM 09/07/18 10/25/19 History mcg (1,000 unit) capsule omega 1-pcs-hkk-fish oil 1,000 mg 1 cap PO BID cap 03/09/19 10/25/19 History (120 mg-180 mg) capsule atorvastatin 40 mg tablet 40 mg PO QPM #90 tab 08/29/19 10/25/19 Rx omeprazole 40 mg capsule,delayed 40 mg PO BID #60 cap 09/06/19 10/31/19 Rx release lisinopril 40 mg tablet 40 mg PO QAM #30 tab 09/21/19 10/25/19 Rx ascorbic acid (vitamin C) 500 mg 1,000 mg PO HS tab 10/04/19 10/31/19 History tablet vitamin E 400 unit tablet 400 units PO QAM 10/04/19 10/31/19 History hydrochlorothiazide 12.5 mg PO QAM 10/25/19 10/25/19 History metoprolol succinate 25 mg PO HS 10/25/19 10/25/19 History acetaminophen [Tylenol] 650 mg PO Q4 PRN 10/31/19 10/31/19 History Patient History Medical History GERD (gastroesophageal reflux disease) (Chronic) Hearing deficit (Chronic) History of Helicobacter pylori infection resolved. treated in april 2019 Hyperlipidemia (Chronic) Hypertension (Chronic) Sleep apnea (Chronic) cpap Surgical History History of back surgery 05/20/01 lumbar laminectomy (fragmented disc removed at l4-l[address] Paula History of bilateral cataract extraction History of cardiac cath 2005 @ [place] no stents History of cataract surgery 05/04 removal of bilateral cataracts History of colonoscopy w/ polypectomy mar 2019 History of esophagogastroduodenoscopy (EGD) apr 2019 History of lumbar discectomy L5 History of tonsillectomy and adenoidectomy History of tooth extraction wisdom teeth Hx of vasectomy Family History Grandmother (Maternal) Family history of diabetes mellitus Diabetes Father Cardiac disorder Myocardial infarction Brother Cardiac disorder Mother History of cholecystectomy Other Heart disease Denies family history of Ovarian cancer Prostate cancer Breast cancer Colorectal cancer Social History Smoking Status: Former smoker Age Started Using Tobacco: 17; Age Quit Using Tobacco: 32; Cigarettes Per Day: 1 pack; Smoking End Date: 32 years ago; Second Hand Exposure: No; Hx Alcohol Use: Yes Alcohol type: beer Alcohol Intake Frequency Comment: 12 drinks per week Hx Substance Use: No Preferred Language: Yakut Communication Ability: Effective Visual Impairment: Limited Hearing Ability: Normal Crabber Required: No Beliefs That Will Affect Care: None marital status: Current Living Situation: Spouse Current Living Situation Comment: Lives with current occupational status: employed current occupation: production control Feels Safe at Home: Yes Safety Concerns: Feels Safe At This Time Childhood Exposure to Second-Hand Smoke: Yes Diet Comment: pt states he is on a special diet caffeine: Yes (Coffee x 2 cups per day.) during the past year weight has: decreased > 10 lbs Dental Care, Regularly: Yes Physical Activity Frequency: 3-4 Times per Week Seatbelt Use: always Sunscreen Use: No Review of Systems Review of Systems: All systems reviewed & are unremarkable except as noted in HPI & below Constitutional: no fever and no chills Eyes: no diplopia and no problem reported Ear, Nose, Mouth, Throat: no dizziness and no dysphagia Respiratory: no cough and no dyspnea Cardiovascular: no chest pain and no palpitations Gastrointestinal: no nausea and no vomiting Genitourinary: no dysuria and no hematuria Musculoskeletal: no problem reported Integumentary: no rash and no lesions Neurologic: no falls, no numbness and no paresthesia Psychiatric: no problem reported Endocrine: no fatigue, no cold intolerance and no heat intolerance Allergy / Immunological: no cough and no rash Physical Exam Constitutional: WD/WN, vitals as above no acute distress Eyes: + anicteric sclerae and PERRL ENMT: Ears: no hearing impairment Neck: trachea midline, no thyromegaly Respiratory: normal respiratory effort, lungs clear to auscultation Cardiovascular: RRR, no murmur, no edema Gastrointestinal (Abdomen): Percussion/Palpation: + abdomen tender (minimally tender at incision sites) and abdomen soft; no guarding and abdomen not rigid surgical incisions with steristrips right abdominal dressing c/d/i. ANA with bloody drainage with bile Musculoskeletal: Head/Neck/Chest: normocephalic and head atraumatic Skin: warm, dry Neurologic: PERRL, EOMI, accommodation nl, no face palsy, no dysarthria Psychiatric: A+Ox3, euthymic affect Lymphatic: no cervical or axillary lymphadenopathy Results & Data Results & Data ([facility]) Vital Signs (Past 12 Hours) Vital Signs Temp Pulse Pulse Pulse Resp BP BP 10/31/19 10:44 36.3 C L 81 16 138/76 10/31/19 10:15 36.6 C 77 18 134/74 10/31/19 09:45 36.8 C 83 18 126/74 10/31/19 09:15 36.3 C L 68 16 118/70 10/31/19 09:05 36.5 C 65 20 132/68 10/31/19 08:50 67 19 127/68 10/31/19 08:40 63 17 128/64 10/31/19 08:30 65 22 118/64 10/31/19 08:24 36.3 C L 64 21 127/59 L 10/31/19 05:58 36.7 C 65 18 132/82 Pulse Ox 10/31/19 10:44 93 10/31/19 10:15 93 10/31/19 09:45 93 10/31/19 09:15 95 10/31/19 09:05 95 10/31/19 08:50 97 10/31/19 08:40 100 10/31/19 08:30 100 10/31/19 08:24 100 10/31/19 05:58 98 PG Care Time/CCT Total # of Minutes Spent Total Time Spent with Patient: Total time spent is greater than 50% in coordination of care (as documented) at patient's floor/unit and/or counseling patient: Coding Level of Care Code 80592 Inpt Consult Level 3 Diagnoses S/P laparoscopic cholecystectomy Z90.49 Hypertension I10 Dyslipidemia E78.5 GERD (gastroesophageal reflux disease) K21.9 Sleep apnea in adult G47.30 Vitamin D deficiency E55.9 Aortic valve insufficiency I35.1 DVT prophylaxis Z29.9
--- NOTE | 2019-10-31 13:52 | Anesthesiology Progress Note ---
Date of Service October 31, 2019 Anesthesia Post Procedure Vital Signs Vital Signs: Temp Pulse Pulse Pulse Resp BP BP 10/31/19 11:15 36.5 C 84 20 128/66 10/31/19 10:44 36.3 C L 81 16 138/76 10/31/19 10:15 36.6 C 77 18 134/74 10/31/19 09:45 36.8 C 83 18 126/74 10/31/19 09:15 36.3 C L 68 16 118/70 10/31/19 09:05 36.5 C 65 20 132/68 10/31/19 08:50 67 19 127/68 10/31/19 08:40 63 17 128/64 10/31/19 08:30 65 22 118/64 10/31/19 08:24 36.3 C L 64 21 127/59 L 10/31/19 05:58 36.7 C 65 18 132/82 Pulse Ox 10/31/19 11:15 95 10/31/19 10:44 93 10/31/19 10:15 93 10/31/19 09:45 93 10/31/19 09:15 95 10/31/19 09:05 95 10/31/19 08:50 97 10/31/19 08:40 100 10/31/19 08:30 100 10/31/19 08:24 100 10/31/19 05:58 98 Pain Intensity Bilateral Shoulder: Pain Intensity: 2 Abdomen: Pain Intensity: 3 Transfer of Care Handoff Completed per policy Notes Mental Status: alert / awake / arousable and participated in evaluation Patient Amnestic to Procedure: Yes Nausea / Vomiting: adequately controlled Pain: adequately controlled Airway Patency, RR, SpO2: stable & adequate BP & HR: stable & adequate Hydration State: stable & adequate Anesthetic Complications: no major complications apparent and Pt Satisfied with anesthetic care
[2019-10-31] MEDS ORDERED: COUGH DROP (SUGAR FREE) LOZ 24 LOZ/1 BOX BUCCAL ONE (15:26)
[2019-10-31] MEDS ORDERED: METOPROLOL SUCC 25MG EXT REL TAB PO SCH (21:00)
[2019-10-31] MEDS ORDERED: ATORVASTATIN 40 MG TAB PO SCH (21:00)
[2019-10-31] MEDS: PANTOprazole 40 MG TAB PO SCH (21:50)
[2019-11-01 04:04] VITALS: O2SAT 96
[2019-11-01 05:48] LABS: Basophils # (auto) 0.02 K/uL (0-0.2); Basophils % (auto) 0.2 %; Eosinophils # (auto) 0.09 K/uL (0-0.5); Eosinophils % (auto) 0.7 %; Hematocrit (blood only) 41.1 % (42-52); Hemoglobin 13.4 g/dL (14.0-18.0); Immature Granulocytes # (auto) 0.04 K/uL (0.00-0.02); Immature Granulocytes % (auto) 0.3 %; Lymphocytes # (auto) 1.53 K/uL (1.2-3.4); Lymphocytes % (auto) 11.5 %; Mean Corpuscular Hemoglobin 28.3 pg (25-34); Mean Corpuscular Hgb Conc 32.6 g/dL (32-36); Mean Corpuscular Volume 86.7 fL (80-100); Mean Platelet Volume 10.3 fL (7.4-10.4); Monocytes # (auto) 1.15 K/uL (0.11-0.59); Monocytes % (auto) 8.7 %; Neutrophils # (auto) 10.43 K/uL (1.4-6.5); Neutrophils % (auto) 78.6 %; Platelet Count 238 K/uL (130-400); RDW Coefficient of Variation 13.1 % (11.5-14.5); RDW Standard Deviation 41.6 fL (36.4-46.3); Red Blood Count 4.74 M/uL (4.7-6.1); White Blood Count 13.26 K/uL (4.8-10.8)
[2019-11-01 06:15] LABS: Albumin Level 3.3 gm/dl (3.4-5.0); Aspartate Aminotransferase 28 U/L (15-37); BUN Creatinine Ratio 21.4 (10-20); Bilirubin Direct < 0.1 mg/dl (0-0.2); Blood Urea Nitrogen 27 mg/dl (7-18); Calcium 8.9 mg/dl (8.5-10.1); Carbon Dioxide 24 mmol/L (21-32); Chloride 105 mmol/L (98-107); Creatinine Clr Calc Pharmacy 74.3 ml/min; Est GFR (African American) 71.8; Est GFR (Non-African American) 61.9; Glucose 121 mg/dl (70-99); Potassium 3.7 mmol/L (3.5-5.1); Sodium 137 mmol/L (136-145)
[2019-11-01 06:19] LABS: Alanine Aminotransferase 46 U/L (12-78); Alkaline Phosphatase 79 U/L (45-117); Bilirubin,Total 0.5 mg/dl (0.2-1); Globulin 3.2 gm/dl (2.5-4.0); Phosphorus 3.8 mg/dl (2.5-4.9); Total Protein 6.5 gm/dl (6.4-8.2)
[2019-11-01 07:40] VITALS: BP 148/72; PULSE 62; TEMP 98.2
[2019-11-01] MEDS: DOCUSATE SODIUM/SENNA 50/8.6MG TAB PO SCH (08:39)
[2019-11-01] MEDS: PANTOprazole 40 MG TAB PO SCH (08:39)
[2019-11-01] MEDS: hydroCHLOROthiazide 25 MG TAB PO SCH (08:40)
--- NOTE | 2019-11-03 09:33 | Discharge Summary (DS) ---
PRINCIPAL DIAGNOSIS: Acute on chronic cholecystitis. HISTORY OF PRESENT ILLNESS: The patient is a 64-year-old male who has been having abdominal pain, felt to be biliary colic, brought into the hospital on 10/31/2019 where he underwent laparoscopic cholecystectomy, which he tolerated very well. He was monitored in the hospital overnight. He did have a drain in place, was discharged home on 11/01/2019 to be followed in the surgical clinic within 2-3 days.
== END 2019-11-01 10:09 | disposition home or self-care (01) ==
LOC: ASU 05:13 → 3N 05:13